=== PATIENT | female | born 1990 | race Two or more races ===

== ENCOUNTER 2018-08-24 12:48 | Emergency (ER) | payer MEDICAID ==
[~2018-08-24] VITALS: Ht 154.9 cm; Wt 114.3 kg
[~2018-08-24 12:48] MED LIST: ASPI325T17 PO; DOCU-131 PO; HYDR-3240 PO; IBUP-1222 PO; LABE100T6 PO; METH250T3 PO; PREN1TAB60 PO
[2018-08-24] MEDS ORDERED: SODIUM CHLORIDE 0.9% 1,000ML IVBOLUS ONE (13:00)
[2018-08-24] MEDS ORDERED: SODIUM CHLORIDE FLUSH 10ML SYR IVF ONE (13:00)
[2018-08-24] MEDS ORDERED: LORazepam 2 MG/ML, 1ML ONE (13:04)
[2018-08-24] MEDS ORDERED: ONDANSETRON 2MG/ML, 2ML ONE (13:04)
--- NOTE | 2018-08-24 13:22 | NUR ---
Pt presents to ED by EMS with nausea, vomitting, one episode or urine incontinence, and tremulous after "eating an edible" of marijuana today. Pt is AOX4, skin is pink, warm, dry, cms intact. Pt refusing to wear hospital gown or change out of personal clothing that is urine soaked. Pt connected to NIPB, continous pulse ox, and quality assurance monitor body. PIV fluids and medication provided per EMAR. Pt has 20 gauge PIV established prior to arrival to ED. Both bedrails up for safety measures. Call light within reach. Family at bedside. NADN. Pt denies cp, sob, trauma, or syncope.
[2018-08-24] MEDS ORDERED: PLEASE ENTER HEIGHT AND WEIGHT MC SCH (13:30)
[2018-08-24 13:32] LABS: ALANINE AMINOTRANSFERASE 18 U/L (12-78); ALBUMIN 3.3 g/dL (3.4-5.0); ANION GAP 8 mmol/L (5-15); CALCIUM 8.9 mg/dL (8.5-10.1); CHLORIDE 106 mmol/L (98-107); CREATININE 0.98 mg/dL (0.55-1.02)
[2018-08-24 13:37] LABS: ALKALINE PHOSPHATASE 81 U/L (45-117); BILIRUBIN,TOTAL 0.1 mg/dL (0.2-1.0); TOTAL PROTEIN 8.3 g/dL (6.4-8.2)
[2018-08-24] MEDS ORDERED: ONDANSETRON 2MG/ML, 2ML IVPush ONE (14:00)
[2018-08-24] MEDS ORDERED: LORazepam 2 MG/ML, 1ML IVPush ONE (14:00)
[2018-08-24 14:06] VITALS: BP 127/74
--- NOTE | 2018-08-24 14:06 | NUR ---
float rn note: patient sleeping with equal chest rise and fall. family at bs. no distress
--- NOTE | 2018-08-24 14:36 | NUR ---
TASK RN: SPO2 >90% ON RA. PT ARROUSABLE TO VOICE AND MAINTAINING CONVERSATION WITH CLEAR SPEECH. PT REPORTS "FEELING MUCH BETTER". DC EDUCATION PROVIDED TO FAMILY/PT, WHO DEMONSTRATE UNDERSTANDING. FAMILY TO ACCOMPANY PT HOME AND CONTINUE TO OBS. PT/FAMILY AWARE OF S/S OF WORSENING CONDITION AND AGREE TO RETURN TO ED IF THEY OCCUR. PT TRANSFERED SELF TO BEDSIDE WHEELCHAIR AND WAS WHEELED TO DC WITH RN AND FAMILY
== END 2018-08-24 14:39 | disposition home or self-care (01) ==
LOC: ED 14:25
DX: E86.0 Dehydration (principal); R11.10 Vomiting, unspecified; I10 Essential (primary) hypertension; E11.9 Type 2 diabetes mellitus without complications
CPT/HCPCS: 36415; 80053; 84703; 96361; 96374; 96375; 99283; J2060; J2405; J7030

== ENCOUNTER 2020-09-23 12:24 | Emergency (ER) | payer MEDICAID ==
[~2020-09-23] VITALS: Ht 154.9 cm; Wt 100.5 kg
[~2020-09-23 12:24] MED LIST changes: +HYDR-2214 PO; -HYDR-3240 PO
[2020-09-23 13:39] LABS: BASOPHILS % (AUTO) 0 % (0-1); EOSINOPHILS % (AUTO) 2 % (1-7); LYMPHOCYTES % (AUTO) 19 % (22-44); MEAN CORPUSCULAR HEMOGLOBIN 23.4 pg (27.0-34.8); MEAN CORPUSCULAR HGB CONC 32.1 g/dL (32.4-35.8); MEAN PLATELET VOLUME 9.7 fL (7.4-10.4); MONOCYTES % (AUTO) 6 % (2-9); NEUTROPHILS % (AUTO) 74 % (42-75); PLATELET COUNT 358 x10^3/uL (130-400); RED BLOOD COUNT 5.37 x10^6/uL (3.82-5.3); RED CELL DISTRIBUTION WIDTH 17.8 % (9.6-15.2)
[2020-09-23 13:49] LABS: ALANINE AMINOTRANSFERASE 20 U/L (12-78); ALBUMIN 2.8 g/dL (3.4-5.0); ANION GAP 6 mmol/L (5-15); CALCIUM 8.5 mg/dL (8.5-10.1); CHLORIDE 106 mmol/L (98-107); CREATININE 0.73 mg/dL (0.55-1.02)
[2020-09-23 13:53] LABS: ALKALINE PHOSPHATASE 77 U/L (45-117); BILIRUBIN,TOTAL 0.2 mg/dL (0.2-1.0); TOTAL PROTEIN 7.5 g/dL (6.4-8.2)
--- NOTE | 2020-09-23 13:57 | NUR ---
Pt to imaging via [email or web address].
[2020-09-23 14:10] LABS: MICROSCOPIC AUTO
--- NOTE | 2020-09-23 14:50 | NUR ---
MD Romo to bedside for eval.
[2020-09-23 14:51] VITALS: BP 143/94
== END 2020-09-23 15:24 | disposition home or self-care (01) ==
LOC: ED 15:20
DX: O20.0 Threatened abortion (principal); O23.41 Unspecified infection of urinary tract in pregnancy, first trimester; O24.419 Gestational diabetes mellitus in pregnancy, unspecified control; O16.1 Unspecified maternal hypertension, first trimester; Z3A.01 Less than 8 weeks gestation of pregnancy
CPT/HCPCS: 36415; 76801; 80053; 81001; 84702; 85025; 87086; 99284

== ENCOUNTER 2020-09-24 09:27 | Emergency (ER) | payer MEDICAID ==
[~2020-09-24] VITALS: Ht 154.9 cm; Wt 99.7 kg
--- NOTE | 2020-09-24 10:12 | NUR ---
pipe finisher note: Pt to room from lobby.
--- NOTE | 2020-09-24 10:17 | NUR ---
PATIENT AMBULATED TO BATHROOM WITH STEADY GAIT FOR URINE SAMPLE.
--- NOTE | 2020-09-24 10:18 | NUR ---
PATIENT AMBULATED BACK TO ROOM, HERE WITH CHIEF C/O VAGINAL BLEEDING X1 HOUR. PATIENT REPORTS SHE WAS HERE YESTERDAY FOR CRAMPING AND DIAGNOSED WITH UTI. PATIENT IS 6 WEEKS , THIS IS PATIENTS SECOND . PATIENT CONNECTED TO MONITOR, VSS, CALL LIGHT WITHIN REACH. ERMD AT BEDSIDE FOR EVALUATION.
[2020-09-24] MEDS ORDERED: CEFDINIR 300 MG CAPSULE PO/NG ONE (10:30)
[2020-09-24] MEDS ORDERED: CEFDINIR 300 MG CAPSULE ONE (10:33)
--- NOTE | 2020-09-24 11:17 | NUR ---
ERMD AT BEDSIDE TO DISCUSS POC.
[2020-09-24] MEDS ORDERED: KETOROLAC 60 MG/2 ML ONE (11:28)
[2020-09-24] MEDS ORDERED: KETOROLAC 30 MG/1 ML IM ONE (11:30)
[2020-09-24 11:31] VITALS: BP 143/69
--- NOTE | 2020-09-24 11:41 | NUR ---
Patient given discharge instructions and prescription and they have confirmed that they understand the instructions. Patient ambulatory with steady gait. NAD, all questions answered appropriately, denies additional needs at this time. No personal belongings left in room after discharge.
== END 2020-09-24 11:42 | disposition home or self-care (01) ==
LOC: ED 10:40
DX: O20.0 Threatened abortion (principal); O23.41 Unspecified infection of urinary tract in pregnancy, first trimester; O24.419 Gestational diabetes mellitus in pregnancy, unspecified control; O16.1 Unspecified maternal hypertension, first trimester; Z3A.01 Less than 8 weeks gestation of pregnancy
CPT/HCPCS: 36415; 84702; 96372; 99283; J1885

== ENCOUNTER 2020-09-26 14:42 | Emergency (ER) | payer MEDICAID ==
[~2020-09-26] VITALS: Ht 154.9 cm; Wt 100.3 kg
[2020-09-26 15:03] VITALS: BP 151/97
== END 2020-09-26 17:00 | disposition home or self-care (01) ==
LOC: ED 16:40
DX: O03.9 Complete or unspecified spontaneous abortion without complication (principal); I10 Essential (primary) hypertension; E11.9 Type 2 diabetes mellitus without complications
CPT/HCPCS: 36415; 84702; 99283